=== PATIENT | female | born 1970 | race African-American/Black ===

== ENCOUNTER 2020-02-11 10:45 | Emergency (ER) | payer BC, MEDICAID ==
[~2020-02-11] VITALS: Ht 170.2 cm; Wt 122.0 kg
[2020-02-11 11:04] VITALS: BP 163/103
[2020-02-11] MEDS ORDERED: KETOROLAC 60MG/2ML VIAL IM ONE (11:30)
== END 2020-02-11 12:04 | disposition home or self-care (01) ==
LOC: ER 10:45
DX: M16.0 Bilateral primary osteoarthritis of hip (principal); M19.212 Secondary osteoarthritis, left shoulder
CPT/HCPCS: 96372; 99283; J1885